=== PATIENT | female | born 2000 | race Caucasian/White ===

== ENCOUNTER 2019-07-11 22:05 | Emergency (ER) | payer BC, OTHER ==
[~2019-07-11] VITALS: Ht 172.7 cm; Wt 74.8 kg
[~2019-07-11 22:05] MED LIST: ETHO250C PO; ZONI100C42 PO
[2019-07-11 22:10] VITALS: BP_SYST 111
--- NOTE | 2019-07-11 22:10 | NUR ---
Patient triaged and placed in waiting room. VSS and patient appears in no acute distress at this time. Accompanied by MOTHER, awaiting available bed, and MD notified of need for MSE.
--- NOTE | 2019-07-11 22:46 | NUR ---
Patient to ER bed 5 to gown for evaluation. Side rails up. Report given to REFUGIO TANG.
--- NOTE | 2019-07-11 22:49 | NUR ---
ER Dr. Correa at bedside examining patient.
--- NOTE | 2019-07-11 22:50 | NUR ---
Pt C/O of bug bite to RT knee associated with redness and swelling. Denies any other symptoms at this time. Will continue to monitor.
[2019-07-11] MEDS ORDERED: IBUPROFEN 800 MG TABLET PO ONE (23:00)
[2019-07-11] MEDS ORDERED: SULFAMETHOXAZOLE/TRIMETHOPR DS 1 TABLET PO ONE (23:00)
--- NOTE | 2019-07-11 23:11 | NUR ---
Patient given written and verbal discharge instructions and verbalizes understanding. ER MD discussed with patient the results and treatment provided. Patient in stable condition. ID arm band removed. Rx of BACTRIM AND MOTRIN given. Patient educated on pain management and to follow up with PMD. Pain Scale 6/10. Opportunity for questions provided and answered. Medication side effect fact sheet provided.
== END 2019-07-11 23:11 | disposition home or self-care (01) ==
LOC: SED 22:05
DX: L03.115 Cellulitis of right lower limb (principal); Z79.899 Other long term (current) drug therapy
CPT/HCPCS: 99283

== ENCOUNTER 2024-03-19 22:43 | Emergency (ER) | payer BC ==
[~2024-03-19] VITALS: Ht 172.7 cm; Wt 81.6 kg
[2024-03-19 22:48] VITALS: BP_SYST 122; PULSE 88; RESP 16; TEMP 98.7; O2SAT 99
[2024-03-19 23:53] LABS: BILIRUBIN,URINE NEGATIVE (NEGATIVE); BLOOD, URINE NEGATIVE (NEGATIVE); CLARITY/URINE CLEAR (CLEAR); COLOR,URINE YELLOW (YELLOW); GLUCOSE,URINE NEGATIVE (NEGATIVE); KETONES,URINE NEGATIVE (NEGATIVE); LEUKOCYTE ESTERASE ,URINE NEGATIVE (NEGATIVE); NITRITE, URINE NEGATIVE (NEGATIVE); PH,URINE 6.5 (5.0-8.0); PROTEIN URINE NEGATIVE (NEGATIVE); UROBILINOGEN,URINE 0.2 (0.2-1.0)
[2024-03-20 00:26] LABS: BASOPHILS # (AUTO) 0.1 K/uL (0.0-0.2); EOSINOPHILS # (AUTO) 0.2 K/uL (0.0-0.4); EOSINOPHILS % (AUTO) 1.8 % (0.0-4.0); HEMATOCRIT 38.2 % (36-48); HEMOGLOBIN 12.7 g/dL (12.0-16.0); LYMPHOCYTES # (AUTO) 2.8 K/uL (1.0-5.5); LYMPHOCYTES % (AUTO) 30.1 % (20.5-51.5); MEAN CORPUSCULAR HEMOGLOBIN 30 pg (27-31); MEAN CORPUSCULAR HGB CONC 33 % (32-36); MEAN CORPUSCULAR VOLUME 89 fL (79.0-98.0); MONOCYTES # (AUTO) 0.8 K/uL (0.0-1.0); MONOCYTES % (AUTO) 8.6 % (1.7-9.3); NEUTROPHILS # (AUTO) 5.4 K/uL (1.8-7.7); NEUTROPHILS % (AUTO) 58.5 % (40.0-70.0); PLATELET COUNT (AUTO) 264 K/uL (130-430); RED BLOOD CELL COUNT(AUTO) 4.29 MIL/uL (4.2-6.2); RED CELL DISTRIBUTION WIDTH 13.7 % (9.0-15.0); WHITE BLOOD COUNT (AUTO) 9.3 K/uL (4.8-10.8)
[2024-03-20 00:38] LABS: ALBUMIN 3.9 g/dL (3.4-4.8); BILIRUBIN,DIRECT 0.1 mg/dL (0.0-0.3); CALCIUM 9.2 mg/dL (8.4-11.0); POTASSIUM 3.8 mmol/L (3.5-5.1); TOTAL BILIRUBIN 0.2 mg/dL (0.0-1.0); TOTAL PROTEIN, SERUM 7.7 g/dL (6.4-8.3)
[2024-03-20] MEDS ORDERED: LORA-258 PO (01:13)
== END 2024-03-20 01:25 | disposition home or self-care (01) ==
LOC: SED 22:43
DX: F41.9 Anxiety disorder, unspecified (principal); R00.2 Palpitations; G40.909 Epilepsy, unspecified, not intractable, without status epilepticus
CPT/HCPCS: 36415; 80048; 80076; 81001; 81003; 81025; 83690; 85025; 93005; 99284

== ENCOUNTER 2024-07-27 16:16 | Emergency (ER) | payer BC ==
[~2024-07-27] VITALS: Ht 172.7 cm; Wt 81.6 kg
[~2024-07-27 16:16] MED LIST changes: +LORA-258 PO
[2024-07-27 16:25] VITALS: BP_SYST 110; PULSE 64; RESP 18; TEMP 98.1; O2SAT 94
== END 2024-07-27 18:51 | disposition left against medical advice (07) ==
LOC: SED 16:16
DX: R07.89 Other chest pain (principal); G40.909 Epilepsy, unspecified, not intractable, without status epilepticus; Z90.49 Acquired absence of other specified parts of digestive tract; Z79.899 Other long term (current) drug therapy; Z79.2 Long term (current) use of antibiotics
CPT/HCPCS: 99283